=== PATIENT | female | born 1960 | race Caucasian/White ===

== ENCOUNTER 2022-10-05 08:30 | Outpatient (CLI) | payer BC | END 2022-10-05 08:31 | disposition home or self-care (01) | LOC: CSHCT 08:30 | PROVIDERS: ATTEND Physician Assistant Medical | DX: R11.2 Nausea with vomiting, unspecified (principal); R10.11 Right upper quadrant pain; R19.7 Diarrhea, unspecified; Z80.0 Family history of malignant neoplasm of digestive organs; R16.0 Hepatomegaly, not elsewhere classified; N83.201 Unspecified ovarian cyst, right side; K42.9 Umbilical hernia without obstruction or gangrene; N20.0 Calculus of kidney | CPT/HCPCS: 74177; 82565 ==

== ENCOUNTER 2023-01-20 12:37 | Inpatient (IN) | payer BC ==
[2023-01-20 14:06] VITALS: BMI 46.6
[2023-01-20] MEDS ORDERED: Ondansetron PF 4 MG/2 ML Vial IVP PRN (14:24)
[2023-01-20] MEDS: Azithromycin 500 MG in Sodium Chloride 0.9% 250 ML 250 ML IVPB SCH (15:31)
[2023-01-20] MEDS: cefTRIAXone\\ROCEPHIN 1 GM in Sodium Chloride 0.9% 100 ML IVPB SCH (15:31)
[2023-01-20] MEDS: Acetaminophen 325 MG TAB PO PRN (19:50)
[2023-01-20] MEDS: Atenolol 25 MG TAB PO SCH (21:34)
[2023-01-20] MEDS: ALPRAZolam 0.5 MG TAB PO SCH (21:34)
[2023-01-21 04:05] LABS: #Monocytes 0.4 10x3/uL (0.0-1.1); #Neutrophils 6.7 10x3/uL (1.5-8.4); %Basophils 0.2 % (0.0-2.0); %Eosinophils 0.4 % (0.0-6.0); %Lymphocytes 13.2 % (18.0-47.0); %Neutrophils 79.6 % (40.0-75.0); Hematocrit 34.3 % (34.9-44.5); Hemoglobin 11.3 g/dL (12.0-15.5); Mean Corpuscular HGB CONC 32.9 g/dL (32.0-36.0); Mean Corpuscular Hemoglobin 29.3 pg (27.0-33.0); Mean Corpuscular Volume 88.9 fl (81.6-98.3); Mean Platelet Volume 9.8 fl (7.4-10.4); Platelet Count 152 10x3/uL (150-450); RBC Distribution Width 13.9 % (11.5-14.5); Red Blood Cell (RBC) Count 3.86 10x6/uL (3.90-5.03); White Blood Cell (WBC) Count 8.4 10x3/uL (3.5-10.5)
[2023-01-21 04:23] LABS: Anion Gap 15 mmol/L (10-20); BUN (Urea Nitrogen) 14 mg/dL (9.8-20.1); Calc. Creatinine Clearance 104 mL/min (70-130); Calcium 8.6 mg/dL (7.8-10.44); Carbon Dioxide 25 mmol/L (23-31); Chloride 103 mmol/L (98-107); Estimated GFR 62; Glucose 113 mg/dL (80-115); Potassium 3.6 mmol/L (3.5-5.1); Sodium 139 mmol/L (136-145)
[2023-01-21] MEDS: Acetaminophen 325 MG TAB PO PRN (06:27)
[2023-01-21] MEDS: Dexamethasone 20 MG/5 ML VIAL SLOW IVP SCH (10:08)
[2023-01-21] MEDS: Allopurinol 100 MG TAB PO SCH (10:09)
[2023-01-21] MEDS: Loratadine 10 MG TAB PO SCH (10:10)
[2023-01-21] MEDS: Atenolol 25 MG TAB PO SCH ×2 (10:10→22:59)
[2023-01-21] MEDS: ALPRAZolam 0.5 MG TAB PO SCH ×2 (10:11→22:59)
[2023-01-21] MEDS: Citalopram 20 MG TAB PO SCH (10:11)
[2023-01-21] MEDS ORDERED: Indomethacin 25 mg Capsule PO SCH (11:00)
[2023-01-21] MEDS ORDERED: Valsartan 80 MG TAB PO SCH (11:00)
[2023-01-21] MEDS ORDERED: Hydrochlorothiazide 25 MG TAB PO SCH (11:00)
[2023-01-21] MEDS: Azithromycin 500 MG in Sodium Chloride 0.9% 250 ML 250 ML IVPB SCH (16:00)
[2023-01-21] MEDS: cefTRIAXone\\ROCEPHIN 1 GM in Sodium Chloride 0.9% 100 ML IVPB SCH (16:01)
[2023-01-21] MEDS: Indomethacin 25 mg Capsule PO SCH (23:06)
[2023-01-22] MEDS ORDERED: Hydrochlorothiazide 25 MG TAB PO SCH (09:00)
[2023-01-22] MEDS ORDERED: Valsartan 80 MG TAB PO SCH (09:00)
[2023-01-22] MEDS: Indomethacin 25 mg Capsule PO SCH (09:47)
[2023-01-22] MEDS: ALPRAZolam 0.5 MG TAB PO SCH (09:47)
[2023-01-22] MEDS: Loratadine 10 MG TAB PO SCH (09:47)
[2023-01-22] MEDS: Allopurinol 100 MG TAB PO SCH (09:48)
[2023-01-22] MEDS: Atenolol 25 MG TAB PO SCH (09:49)
[2023-01-22] MEDS: Citalopram 20 MG TAB PO SCH (09:49)
[2023-01-22] MEDS: Dexamethasone 20 MG/5 ML VIAL SLOW IVP SCH (09:49)
[2023-01-22 12:33] VITALS: BP 154/78; TEMP 98.4
== END 2023-01-22 16:00 | disposition home or self-care (01) | DRG 177 ==
LOC: CSHTELE 12:37
PROVIDERS: ADMIT Internal Medicine; ATTEND Internal Medicine
PROC: 3E0333Z Introduction of Anti-inflammatory into Peripheral Vein, Percutaneous Approach (ICD-10-PCS; principal; 2023-01-20)
PROC: 8E0ZXY6 Isolation (ICD-10-PCS; 2023-01-20)
DX: U07.1 COVID-19 (principal); J12.82 Pneumonia due to coronavirus disease 2019; J96.01 Acute respiratory failure with hypoxia; I10 Essential (primary) hypertension; K42.9 Umbilical hernia without obstruction or gangrene; Z90.49 Acquired absence of other specified parts of digestive tract; Z87.891 Personal history of nicotine dependence
CPT/HCPCS: 80048; 85025; J0456; J0696; J1100; J3490; J7050

== ENCOUNTER 2024-10-16 12:23 | Outpatient (CLI) | payer OTHER | END 2024-10-16 12:24 | disposition home or self-care (01) | LOC: CSHMRI 12:23 | PROVIDERS: ATTEND Family Medicine | DX: S89.92XD Unspecified injury of left lower leg, subsequent encounter (principal); M94.262 Chondromalacia, left knee ==